=== PATIENT | female | born 1970 | race Caucasian/White ===

== ENCOUNTER 2020-01-20 16:17 | Emergency (ER) | payer MEDICAID ==
[~2020-01-20] VITALS: Ht 170.2 cm; Wt 127.3 kg
[2020-01-20 16:28] VITALS: Ht 170.2 cm; Wt 127.3 kg
[2020-01-20] MEDS ORDERED: LISINOPRIL20 MG PO (16:30)
[2020-01-20] MEDS ORDERED: CYMBALTA60 MG PO (16:31)
[2020-01-20] MEDS ORDERED: ABILIFY10 MG PO (16:31)
[2020-01-20 17:10] LABS: BASOPHILS 0.2 % (0-2); EOSINOPHILS 1.4 % (0-7); HEMATOCRIT 39.4 % (36.0-48.0); HEMOGLOBIN 12.8 g/dL (12-16); IMMATURE GRANULOCYTES 0.2 % (0-5); LYMPHOCYTES 45.9 % (15-50); MCH 28.6 pg (26.0-34.0); MCHC 32.5 g/dL (31.0-37.0); MCV 88.1 fL (80.0-100.0); MEAN PLATELET VOLUME 9.9 fL (7.4-10.4); MONOCYTES 4.3 % (2-11); PLATELET COUNT 294 10x3/uL (130-400); RBC 4.47 10x6/uL (4.00-5.40); RDW 14.1 % (11.5-14.5); WBC 9.1 10x3/uL (4.8-10.8)
[2020-01-20 17:15] LABS: CALC OSMOLALITY 281 mosm/kg (275-300); CALCIUM 8.6 mg/dL (8.5-10.1); CARBON DIOXIDE 28.4 mmol/L (21.0-32.0); CHLORIDE - SERUM 105 mmol/L (98-107); CREATININE - SERUM 0.8 mg/dL (0.6-1.3); GLUCOSE 99 mg/dL (74-106); POTASSIUM - SERUM 3.1 mmol/L (3.5-5.1); SODIUM 142 mmol/L (136-145); UREA NITROGEN 10 mg/dL (7-18); eGFR NON AFRICAN AMERICAN 81 mL/min (90-120)
[2020-01-20 17:21] LABS: ALBUMIN 3.8 g/dL (3.4-5.0); ALKALINE PHOSPHATASE 68 U/L (30-120); ALT (SGPT) 18 U/L (10-68); BILIRUBIN - TOTAL 0.32 mg/dL (0.2-1.3); HCG SERUM NEGATIVE (NEGATIVE); PROTEIN - SERUM 7.7 g/dL (6.4-8.2)
[2020-01-20 17:39] LABS: SPECIFIC GRAVITY 1.015 (1.005-1.020)
[2020-01-20 17:40] LABS: BACTERIA FEW /hpf (NEGATIVE); BILIRUBIN NEGATIVE (NEGATIVE); EPITHELIAL CELLS 0-5 /hpf (0-5); GLUCOSE NEGATIVE (NEGATIVE); KETONE NEGATIVE (NEGATIVE); NITRITE NEGATIVE (NEGATIVE); RED CELLS - URINE 25-50 /hpf (0-5); UROBILINOGEN NORMAL (NORMAL); WHITE CELLS - URINE 0-5 /hpf (NEGATIVE)
[2020-01-20] MEDS ORDERED: CYCLOBENZAPRINE10 MG PO (17:55)
[2020-01-20 18:08] VITALS: BP 160/90
== END 2020-01-20 18:10 | disposition home or self-care (01) ==
LOC: D.ER 16:17
PROVIDERS: Family Medicine
DX: N92.0 Excessive and frequent menstruation with regular cycle (principal); R42 Dizziness and giddiness; R53.1 Weakness